=== PATIENT | female | born 1950 | race Caucasian/White ===

== ENCOUNTER 2017-05-31 11:21 | Inpatient (IN) | payer OTHER ==
[~2017-05-31] VITALS: Ht 157.5 cm; Wt 78.9 kg
[~2017-05-31 11:21] MED LIST: CARVEDILOL25 M1 PO; COUMADIN5 MG PO; Cardizem PO; ECO81 PO; ELIQUIS5 MG PO; FLAGYL ER750 MG PO; FUROSEMIDE40 MG PO; GLU500 PO; LAC PO; LANOXIN0.125 MG PO; LISINOPRIL2.5 MG PO; Levaquin PO; METOCLOPRAMIDE10 M2 PO; METOPROLOL SUCC25 M1 PO; METOPROLOL TART25 M1 PO; PULMICORT0.5 MG/2 M IH; XOP1.25 HHN; ZES10 PO; simvistatin PO
[2017-05-31] MEDS ORDERED: ELIQUIS2.5 MG PO (12:24)
[2017-05-31] MEDS ORDERED: GABAPENTIN100 M2 PO (12:25)
[2017-05-31] MEDS ORDERED: METFORMIN HCL500 MG PO (12:25)
[2017-05-31] MEDS ORDERED: NIT0.4 SL (12:27)
[2017-05-31] MEDS ORDERED: LIPI10 PO (12:27)
[2017-05-31] MEDS ORDERED: ALDACTONE25 MG PO (12:28)
[2017-05-31 12:45] LABS: BASOPHIL % 0.8 % (0-2); PLATELET COUNT 174 x10^3mcL (130-400); RED CELL DISTRIBUTION WIDTH 14.3 % (11.5-14.5)
[2017-05-31 12:50] LABS: CALCIUM 8.2 mg/dL (8.5-10.1); CARBON DIOXIDE 23.7 mmol/L (21-32); CREATININE SERUM 1.1 mg/dL (0.6-1.0); POTASSIUM SERUM 3.8 mmol/L (3.5-5.1)
[2017-05-31 13:01] LABS: BILIRUBIN TOTAL 0.58 mg/dL (0.20-1.00); MAGNESIUM 1.8 mg/dL (1.8-2.4); TOTAL PROTEIN, SERUM 6.4 g/dL (6.4-8.2)
[2017-05-31 13:02] LABS: ALBUMIN 2.9 g/dL (3.4-5.0)
[2017-05-31 14:52] LABS: PHOSPHOROUS 3.6 mg/dL (2.5-4.9)
[2017-05-31 14:56] LABS: CHOLESTEROL/HDL RATIO 2.5
[2017-05-31 15:05] VITALS: BP 98/61
[2017-05-31 15:36] LABS: microscopic required? NO
[2017-05-31 15:47] LABS: urine erythrocyte NEGATIVE (NEGATIVE)
[2017-05-31 15:56] LABS: AMPHETAMINE QUAL UR NONE DETECTED (NEG <=1000)
[2017-05-31 17:27] VITALS: Ht 157.5 cm; Wt 78.9 kg
[2017-05-31 17:36] VITALS: BP 102/54
[2017-05-31 21:06] VITALS: BP 98/56
[2017-06-01 04:59] LABS: CALCIUM 8.2 mg/dL (8.5-10.1); CARBON DIOXIDE 22.5 mmol/L (21-32); CHLORIDE SERUM 109 mmol/L (98-107); CREATININE SERUM 0.8 mg/dL (0.6-1.0); GFR1 > 60 mL/min; GLUCOSE SERUM 103 mg/dL (74-106); POTASSIUM SERUM 3.6 mmol/L (3.5-5.1); SODIUM SERUM 141 mmol/L (136-145)
[2017-06-01 05:34] VITALS: BP 99/58
[2017-06-01 10:28] VITALS: BP 103/57
[2017-06-01 14:46] VITALS: BP 96/60
[2017-06-01 17:30] VITALS: BP 116/67
[2017-06-01 21:51] VITALS: BP 109/68
[2017-06-02 05:54] VITALS: BP 125/78
[2017-06-02 08:45] VITALS: BP 116/76
[2017-06-02 14:26] VITALS: BP 116/76
[2017-06-02] MEDS ORDERED: TOPROL XL25 MG PO (14:35)
== END 2017-06-02 15:10 | disposition home or self-care (01) | DRG 205 ==
LOC: ED 11:21 → DU 13:40
PROVIDERS: Emergency Medicine; ADMIT Family Medicine
DX: M94.0 Chondrocostal junction syndrome [Tietze] (principal); N17.0 Acute kidney failure with tubular necrosis; C56.9 Malignant neoplasm of unspecified ovary; C78.01 Secondary malignant neoplasm of right lung; E44.0 Moderate protein-calorie malnutrition; D68.69 Other thrombophilia; E11.59 Type 2 diabetes mellitus with other circulatory complications; E11.65 Type 2 diabetes mellitus with hyperglycemia; I48.91 Unspecified atrial fibrillation; I12.9 Hypertensive chronic kidney disease with stage 1 through stage 4 chronic kidney disease, or unspecified chronic kidney disease; N18.3 Chronic kidney disease, stage 3 (moderate); E78.00 Pure hypercholesterolemia, unspecified; Z79.84 Long term (current) use of oral hypoglycemic drugs; Z85.030 Personal history of malignant carcinoid tumor of large intestine
CPT/HCPCS: 82962; 83880; 84439; J7030; J7050; J8597; Q0092